=== PATIENT | female | born 1965 | race Caucasian/White ===

== ENCOUNTER → 2024-06-06 11:11 | Outpatient (REF) | payer OTHER, SELFPAY | LOC: WDC 11:11 | PROVIDERS: ATTENDING PHYSICIAN Nurse Practitioner | DX: Z12.31 Encounter for screening mammogram for malignant neoplasm of breast (principal) | CPT/HCPCS: 77063; 77067 ==

== ENCOUNTER 2024-10-25 09:35 | Emergency (ER) | payer OTHER, SELFPAY ==
[2024-10-25 09:41] VITALS: BP 199/106
[2024-10-25 11:11] VITALS: BP 163/84
[2024-10-25 11:25] VITALS: BMI 38.3
[2024-10-25 11:39] LABS: % Basophils 0.4 % (0-2); % Eosinophils 1.7 % (0-6); % Immature Granulocytes 0.6 % (0-0.5); % Lymphocytes 23.3 % (20.5-51.1); % Monocytes 6.4 % (1.7-9.3); % Neutrophils 67.6 % (42.2-75.2); Absolute Eosinophils 0.1 10^3/uL (0-0.7); Absolute Lymphocytes 1.6 10^3/uL (1.2-3.4); Absolute Monocytes 0.5 10^3/uL (0.1-0.6); Absolute Neutrophils 4.8 10^3/uL (1.4-6.5); Hematocrit 41.6 % (37.0-47.0); Hemoglobin 14.4 g/dL (12.0-16.0); Mean Corp Hgb Conc. 34.6 g/dL (33.0-37.0); Mean Corpuscular Hgb 29.9 pg (27.0-31.0); Mean Corpuscular Volume 86.5 fL (81.0-99.0); Mean Platelet Volume 10.2 fL (7.4-10.4); Nucleated Red Blood Cells % 0 %; Platelet Count 197 10^3/uL (130-400); Red Blood Cell Count 4.81 10^6/uL (4.20-5.40); Red Cell Dist. Width 12.7 % (11.5-14.5)
--- NOTE | 2024-10-25 11:48 | ED.GENMED ---
History of Present Illness
General
Chief Complaint: Fainting Sensation
Source: patient
Time Seen by Provider: 10/25/24 11:28
History of Present Illness
History of Present Illness:
59-year-old female presents to the emergency room complaining of feeling dizzy. Patient states symptoms began last night when she was lying in bed and turned over. She felt an abnormal sense of motion and felt nauseous. She continued sleeping and
this morning when she awoke she felt difficulty walking straight. She denies any focal weakness numbness or tingling. She has mild headache. She feels some fullness in her left ear. While waiting here in the emergency room her symptoms have
essentially resolved. Patient believes the symptoms seemed worse when she turns her head to the right. She remained perfectly still her symptoms would go away.
Phy Exam
Physical Exam
Physical Exam:
General: Awake, Alert, Oriented X3. No acute distress.
Vitals: unremarkable
Head: Atraumatic
Eyes: Pupils equal, EOMI
Ears: Normal TMs bilaterally
Throat: Airway intact, no exudates
Neck: Trachea midline
Lungs: Clear and equal b/l
Heart: Regular rate, no murmurs
Abd: Soft, Nontender, No pulsatile mass
Neuro: Cranial nerves intact, muscle strength equal bilaterally, cerebellar exam normal
Skin: Warm, dry, no rash
Extremities: pulses equal b/l, no edema
Course
Orders/Labs/Results
Orders:
Orders
10/25/24 09:44
Electrocardiogram (*1) Urgent
Reason for Study: Other
Other Reason for Exam: feeling lightheaded
EKG- Treatment ONCE
10/25/24 11:29
Complete Blood Count/With Diff Urgent
Comprehensive Metabolic Panel Urgent
Abnormal Lab Results
10/25/24
11:29
Immature Gran % 0.6 H %
(0-0.5)
Creatinine 0.5 L mg/dL
(0.6-1.0)
Glucose 258 H mg/dl
(70-99)
10/25/24 11:29
10/25/24 11:29
Vital Signs
Initial and Last Documented VS:
Initial Vital Signs
Temp Pulse Resp BP Pulse Ox
97.6 F 102 16 199/106 98
10/25/24 09:41 10/25/24 09:41 10/25/24 09:41 10/25/24 09:41 10/25/24 09:41
Last Documented Vital Signs
Temp Pulse Resp BP Pulse Ox
97.6 F 85 16 159/79 98
10/25/24 09:41 10/25/24 13:31 10/25/24 13:31 10/25/24 13:31 10/25/24 13:31
MDM/Problems Addressed
Differential Diagnosis Includes:
Benign positional vertigo, labyrinthitis, dehydration, CVA
MDM/Problems Addressed:
Patient presents with vertigo. Though CVA is initially on the list of possibilities her exam and presentation is not consistent with this. Her symptoms completely resolved with head rest. She has no focal neurologic findings. In fact her
symptoms are completely resolved at the time of my evaluation. However when they were present they were related to head movement. Patient is able to ambulate in the emergency department out difficulty. Labs are unremarkable. Recommend outpatient
follow-up with her primary care provider and with PT for vestibular therapy.
*Pulse Oximetry
Patient hypoxic: no
*EKG
Interpretation: normal
Heart Rate: 99
Rate: normal
Rhythm: sinus
[place]: normal axis
Interval: normal interval
QRS Pattern: normal QRS
Ischemia: no ischemia
*Onboarding Specialist Interpretation
Rate: normal
Interpretation: normal
Heart Rate: 99
Rhythm: sinus
*Critical Care Note
Total Time (30-74mins, 75-104mins- exclusive of procedures): Not Applicable
ED Attending Note
-
Portions of this chart may have been created with voice recognition software.� Occasional wrong word or��sound alike� substitutions may have occurred due to the inherent limitations of voice recognition software.
Discharge Plan
Departure
Patient Disposition: Home (Routine Discharge)
Date of Disposition: 10/25/24
Time of Disposition: 12:33
Patient with high blood pressure during this ER visit?: Yes
Condition: Good
Discharge Problem:
Vertigo, Benign paroxysmal positional vertigo
Instructions: Vertigo - ED discharge instructions
Activity Restrictions/Additional Instructions:
You can use meclizine which is an over the counter medication if your symptoms return. Call for appointment with physical therapy.
Interventions
Interventions:
*Risk Screen - Suicide Last Done: 10/25/24 09:41
*General Assessment Last Done: 10/25/24 11:36
*Neglect/Abuse Screening Last Done: 10/25/24 09:41
*ED- Fall Risk Assessment Last Done: 10/25/24 11:36
*ED COVID-19 Vaccine History Last Done: 10/25/24 11:36
*Nursing Disposition Last Done: 10/25/24 13:31
ED- Cardiac Assessment Last Done: 10/25/24 11:34
ED- Neurological Assessment Last Done: 10/25/24 11:34
Discharge Date and Time
Discharge Date/Time: 10/25/24 13:32
Print Language: MAURITANIAN
[2024-10-25 11:53] LABS: ALT (SGPT) 23 U/L (0-35); AST (SGOT) 20 U/L (14-36); Albumin 4.7 g/dl (3.5-5.0); Alkaline Phosphatase 85 U/L (38-126); Blood Urea Nitrogen 15 mg/dl (7-17); Calcium 9.4 mg/dl (8.4-10.2); Carbon Dioxide 28 mmol/L (22-30); Chloride 103 mmol/L (98-107); Estimated Creatinine Clearance 103 ml/min; Glucose 258 mg/dl (70-99); Potassium 4.5 mmol/L (3.5-5.1); Sodium 139 mmol/L (135-145); Total Bilirubin 0.7 mg/dl (0.2-1.3); Total Protein 7.2 g/dl (6.3-8.2); eGFR > 60.00
[2024-10-25 13:31] VITALS: BP 159/79
== END 2024-10-25 13:32 | disposition home or self-care (01) ==
LOC: EMR 09:35
PROVIDERS: EMERGENCY PHYSICIAN Emergency Medicine; FAMILY PHYSICIAN Internal Medicine
DX: H81.10 Benign paroxysmal vertigo, unspecified ear (principal)
CPT/HCPCS: 99284; 80053; 85025; 93005

== ENCOUNTER → 2024-12-31 07:43 | Outpatient (REF) | payer OTHER, SELFPAY | LOC: RAD 07:43 | PROVIDERS: ATTENDING PHYSICIAN Internal Medicine | DX: M25.561 Pain in right knee (principal) | CPT/HCPCS: 73564; 93971 ==

== ENCOUNTER → 2025-06-12 11:09 | Outpatient (REF) | payer OTHER, SELFPAY | LOC: WDC 11:09 | PROVIDERS: ATTENDING PHYSICIAN Internal Medicine | DX: Z12.31 Encounter for screening mammogram for malignant neoplasm of breast (principal) | CPT/HCPCS: 77063; 77067 ==